=== PATIENT | male | born 1985 | race Caucasian/White ===

== ENCOUNTER → 2021-04-15 16:26 | Outpatient (CLI) | payer BC, SELFPAY ==
[2021-04-15 16:19] VITALS: BMI 35.9
--- NOTE | 2021-04-15 16:29 | RAD_ITS ---
STUDY: X-RAY - RIGHT HAND REASON FOR EXAM: Male, 36 years old. right hand injury TECHNIQUE: 3 view(s) of the hand. COMPARISON: None. FINDINGS: Moderate soft tissue swelling is present over the dorsum of the hand. Normal radiocarpal articulation. Normal distal radioulnar joint. Normal visualized carpal bones. Normal carpal articulations Normal carpometacarpal articulation of the thumb. Normal second through fifth carpometacarpal joints. Normal metacarpi. Normal metacarpophalangeal joint of the thumb. Normal interphalangeal joint of the thumb. Normal proximal and distal phalanges of the thumb. Normal metacarpophalangeal joints of the second through fifth fingers. Normal proximal and distal interphalangeal joints of the second through fifth fingers. Normal phalanges of the second through fifth fingers. A visualized fracture. RAD/Hand Min 3 Views IMPRESSION: 1. Moderate soft tissue swelling over the dorsum of the hand Electronically Signed: Ramiro Moore MD at 17:41 EDT , Service support ,
--- NOTE | 2021-04-15 16:29 | RAD_ITS ---
STUDY: X-RAY - RIGHT WRIST REASON FOR EXAM: Male, 36 years old. recent injury, rope wrapped around hand and wrist and pulled on, swelling and pain TECHNIQUE: 3 view(s) of the wrist were obtained. COMPARISON: None. FINDINGS: Normal visualized distal radius and ulna. Normal radiocarpal articulation. Normal distal radioulnar articulation. Normal carpal bones. Normal carpal articulations. Normal carpometacarpal articulation of the thumb. Normal second through fifth carpometacarpal articulations. Normal visualized metacarpal bones. The soft tissue structures are unremarkable. There is no demonstrated acute fracture. RAD/Wrist min 3 Views IMPRESSION: Normal x-ray examination of the wrist. Electronically Signed: Ramiro Moore MD at 17:39 EDT , Service support ,
== END ==
PROVIDERS: Referring Provider Physician Assistant; Visit Provider Physician Assistant
DX: S69.91XA Unspecified injury of right wrist, hand and finger(s), initial encounter (principal)
CPT/HCPCS: 73110; 73130

== ENCOUNTER 2025-07-04 06:50 | Outpatient (RCR) | payer OTHER, BC, SELFPAY ==
--- NOTE | 2025-07-04 08:37 | HP.FCE ---
Task Lift Floor (Occasional 1-33% of Day): 35 Floor (Frequent 34-66% of Day): 17.5 Floor (Constant 67-100% of Day): 7.3 Floor PDL: Light-Medium Knee (Occasional 1-33% of Day): 45 Knee (Frequent 34-66% of Day): 22.5 Knee (Constant 67-100% of Day): 9.47 Knee PDL: Light-Medium Waist (Occasional 1-33% of Day): 45 Waist (Frequent 34-66% of Day): 22.5 Waist (Constant 67-100% of Day): 9.47 Waist PDL: Light-Medium Shoulder (Occasional 1-33% of Day): 45 Shoulder (Frequent 34-66% of Day): 22.5 Shoulder (Constant 67-100% of Day): 9.47 Shoulder PDL: Light-Medium Overhead (Occasional 1-33% of Day): 35 Overhead (Frequent 34-66% of Day): 17.5 Overhead (Constant 67-100% of Day): 7.3 Overhead PDL: Light-Medium Comments: pt is light - medium in floor, knee, waist, shoulder as well as overhead lifting Work Activity/Posture Bending: Frequent Ability (34-66% of day) Squatting: Frequent Ability (34-66% of day) Kneeling: Frequent Ability (34-66% of day) Reaching out: Frequent Ability (34-66% of day) Reaching up: Frequent Ability (34-66% of day) Sitting: Constant Ability (67-100% of day) Walking: Constant Ability (67-100% of day) Standing: Constant Ability (67-100% of day) Reference Reference: Duration Sedentary Sedentary Light Light Light Medium Medium Medium Heavy Very Heavy Heavy Occasional (0-33% of day) Frequent (34-66% of day) Constant (67-100% of day) 10 # Negligible Negligible 15 # 8 # Negligible 20 # 10# Negli. 35 # 18 # 7 # 50 # 25 # 10 # 75 # 100 # >100 # 38 # 50 # >50 # 15 # 20 # >20 # Patient Information Height: 5 ft 10 in Weight:: 127.006 kg Hand Dominance: R Medical History Medical History Including Restrictions: Pt arrives with dx of fracture of lower humerus x2 years ago with [address] Tresa Hutchins [facility] . Pt states he has been having trouble with elbow ever since. Pt is currently doing physical therapy for his elbow and states his plan is to start a work conditioning program. pt states he has not really been able to use R arm due to pain numbness and tingling as well as loss of ROM and strength. Pt reports otherwise healthy individual. 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, right elbow S56.511A A strain of other extensor muscle, fascia and tendon at forearm level, right arm, initial encounter G56.21 a Lesion of the ulnar nerve, right upper limb S42.454A Nondisplaced fracture of the lateral condyle of the right humerus, initial encounter for closed fracture S50.01XA Contusion of right elbow, initial encounter Symptoms Symptoms: R arm numbness tingling pain- achy loss of ROM loss of strength decreased ability to lift and carry items of increased weight Pain Pain: R elbow pain 5/10 pain goes up with lifting and movement which will rise to 7/10 Papi Pain Questionnaire score 9/78 most comfortable in flexion resting at about 100 degrees increased pain with elbow extension Work History Work History: 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 Pt bedroom up stairs. pt bathroom with t/s combo no grab bars standard commode. Pt does not use AD as means of mobility. Pt is I in ADL tasks as well as IADL tasks however unable to do heavy yardwork such as weed eating and pull start mower. Drives. goes out into community for grocery shopping dinner ect. Physical Examination Physical Examination: HR 79 bpm and 02 97% sitting for intake does not need to adjust posture during intake appears relaxed and comfortable R arm does rest in slight flexion at all times ROM: Upper Extremity: LUE WFL R UE elbow ext -45 and flexion 115 all other ROM WFL Lower Extremity: WFL Strength: measured using fet peak force Upper Extremity: L shoulder flexion: 31.9# R shoulder flexion: 12.1# L bicep: 40.1# R bicep: 16.4# L tricep: 24.3# R tricep: 13.1# L ER: 24.9# R ER: 14.4# Lower Extremity: L hip flexion: 25.1# R hip flexion: 30.7# L quad: 34.8# R quad: 32.2# L hamstrin.9# R hamstrin.5# Right Stroke Belt Sander Operator Strength Average: 46.66 Right Stroke Belt Sander Operator Strength Percentile: <.9 percentile Left Stroke Belt Sander Operator Strength Average: 120.00 Left Stroke Belt Sander Operator Strength Percentile: 60.4 percentile Right Lateral Pinch Average: 18.00 Right Lateral Pinch Percentile: 10th percentile Left Lateral Pinch Average: 28.00 Left Lateral Pinch Percentile: > 90th percentile Right Tripod Pinch Average: 12.33 Right Tripod Pinch Percentile: <10th percentile Left Tripod Pinch Average: 23.00 Left Tripod Pinch Percentile: 75th percentile Sensation: R hand numbness and tingling of D4 and D5 semme-kandi monofilament assessment: D4: 3.22 indicating diminished light touch D5: 3.61 indicting diminished light touch Fine Motor: 9 hole peg assesment R hand: trial 1: 25 sec trial 2: 24 sec trial 3: 22 sec R hand average: 23.66 indicating pt is 10th percentile for age and gender L hand Trial 1: 25 sec trial 2: 25 sec trial 3: 18 sec L hand average: 22.6 indicating pt is 10th percentile for age and gender Balance: standing forward reach score 17 a score of 10 or more indicating low risk for falls Non Material Handling Activities Bending: bending: trial of 3: 12/26 10 at own pace: 08/04 10x fast: 08/04 HR 120 bpm and 02 97% elbow pain 5/10 no UE support bends L knee to come down Squatting: squat: trial of 3: 12/26 10 at own pace: 08/04 10x fast: 08/04 no UE support comes 3/4 way down no LOB pain in R elbow 5/10 HR 130 bpm and 02 97% Kneeling: kneeling: trial of 3: 12/26 10 at own pace: 08/04 10x fast: 08/04 uses knee as support and to push up from R elbow pain 5/10 occ loss of balance able to self correct HR 128 bpm 02 97% Reaching out/up: reaching out: trial of 3: 12/26 10 at own pace: 08/04 10x fast: 08/04 in standing reaching up: trial of 3: 12/26 10 at own pace: 08/04 10x fast: 08/04 in standing unable to fully extend R elbow keeps slightly bent during reaching tasks HR 118 bpm and 02 97% pain in R elbow 6/10 Walking: able to walk x4 laps around therapy gym 1,544 feet and could do more no signs of fatigue during task pt states I could walk all day does not need any AD for mobility no LOB steady pace able to converse during mobility no labored breathing HR 118 bpm and 02 97% Standing: pt stands for approx 20 min during FCE pt states i could stand all day as long as i can change position and lean against something Sitting: pt states he could sit for a few hours would only get up due to needing to be doing something at all times per pt he would 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 in truck 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 pt sits for intake of assessment for 30 min no need for changing positioning Climbing Stairs: able to ascend and descend flight of steps no hand rail needed alternating feet for completion no LOB Dynamic Occasional Lifting Capacity Floor Lift: Floor Lift: box (15#)+ 20#= total of 35# no LOB R lebow pain /10 HR 126 bpm and 02 98% Knee Lift: knee lift: box (15#)+ 30#= total of 45# HR 125 bpm 02 99% uses body to hoist up due to decreased ability to hold on with R UE pain at 6/10 in R elbow Waist Lift: waist: box (15#)+ 30#= total of 45# HR 115 bpm and 02 98% R elbow pain 6/10 keeps load close to body no LOB during task Shoulder Lift: shoulder lift: box (15#)+ 30#= total of 45# able to control ascent and descent of box HR 115 bpm and 02 97% pain in R elbow 7/10 Overhead Lift: overhead lift: box (15#)+ 20#= total of 35# HR 108 bpm and 02 98% R elbow 7/10 starting to feel pain radiate to middle finger able to control ascent does use body to stabilize and control when coming down Carrying: carry box (15#)+ 30#= total of 45# carries 52 feet total carrys load close to body uses body as support to take load off of R UE no LOB steady pace R elbow pain 7.5/10 HR 138 bpm and 02 97%
== END 2025-07-04 19:00 | disposition home or self-care (01) ==
LOC: OT 06:50
PROVIDERS: Referring Provider Family Medicine; Visit Provider Family Medicine
DX: M24.121 Other articular cartilage disorders, right elbow (principal); S56.511D Strain of other extensor muscle, fascia and tendon at forearm level, right arm, subsequent encounter; S42.454D Nondisplaced fracture of lateral condyle of right humerus, subsequent encounter for fracture with routine healing; G56.21 Lesion of ulnar nerve, right upper limb; S50.01XD Contusion of right elbow, subsequent encounter
CPT/HCPCS: 97750